=== PATIENT | female | born 1965 | race Caucasian/White ===

== ENCOUNTER → 2016-12-18 | Outpatient (CLI) | payer OTHER ==
[~2016-12-18] MED LIST: ASPIRIN325 MG PO; ATORVASTATIN CA40 MG PO; ERGOCALCIF50000 UNIT PO; FLEXERIL10 MG PO; HYDROCHLOROTHIA25 MG PO; LEVSIN-SL0.125 MG SL; LO-DOSE ASPIRIN81 M2 PO; NAPROSYN500 MG PO; NEXIUM40 MG PO; NOHOMEMEDS; NOLVADEX20 MG PO; SHARK FIN CART500 MG PO; TOPROL XL25 MG PO; ULTRAM50 MG PO; ZITHROMAX500 MG PO
[2016-12-18 10:37] LABS: MCH 29.7 PG (29.0-34.0); MCHC 33.8 G/DL (30.0-36.0); MCV 87.9 FL (83-99); MEAN PLAT.VOLUME 10.2 uM^3 (9.5-12.4); PLATELET COUNT 233 K/uL (156-360); RBC DIS.WIDTH-SD 38.7 % (39-53); RED BLOOD COUNT 5.12 M/uL (3.80-5.20)
[2016-12-18 10:52] LABS: PROTHROMBIN TIME 10.4 (9.2-11.2); PTT 28.9 (25-32)
== END | disposition home or self-care (01) ==
LOC: OPR 09:37 → EDSTATUS 10:00 → OPR 10:00
PROVIDERS: Thoracic Surgery (Cardiothoracic Vascular Surgery)
DX: B39.2 Pulmonary histoplasmosis capsulati, unspecified (principal); I10 Essential (primary) hypertension; E78.5 Hyperlipidemia, unspecified; Z85.3 Personal history of malignant neoplasm of breast; Z85.830 Personal history of malignant neoplasm of bone; Z82.49 Family history of ischemic heart disease and other diseases of the circulatory system; Z83.3 Family history of diabetes mellitus; Z82.3 Family history of stroke; Z82.5 Family history of asthma and other chronic lower respiratory diseases; Z88.0 Allergy status to penicillin
CPT/HCPCS: 71010; 77012; 85027; 85610; 85730; 88305; 88312; J3010

== ENCOUNTER 2017-08-04 14:21 | Emergency (ER) | payer OTHER ==
[~2017-08-04] VITALS: Ht 172.7 cm; Wt 74.7 kg
[~2017-08-04 14:21] MED LIST changes: -ATORVASTATIN CA40 MG PO; +ATORVASTATIN CA80 MG PO
[2017-08-04 15:22] LABS: HEMATOCRIT 40.1 % (36.0-46.0); MCH 31.3 PG (29.0-34.0); MCHC 35.4 G/DL (30.0-36.0); MCV 88.3 FL (83-99); MEAN PLAT.VOLUME 10.2 uM^3 (9.5-12.4); PLATELET COUNT 217 K/uL (156-360); RBC DIS.WIDTH-SD 38.9 % (39-53); RED BLOOD COUNT 4.54 M/uL (3.80-5.20); WHITE BLOOD COUNT 10.3 K/uL (4.1-10.2)
[2017-08-04 15:33] LABS: CHLORIDE 107 mEq/L (99-109); POTASSIUM 3.8 mEq/L (3.7-5.4); SODIUM 140 mEq/L (136-147)
[2017-08-04 15:35] LABS: GLUCOSE 95 mg/dL (70-99)
[2017-08-04 15:36] LABS: ANION GAP 10 MEQ/L (2-14)
[2017-08-04 15:39] LABS: GFR ESTIMATE (CALCULATED) > 59 mL/min/; UREA NITROGEN (BUN) 17 mg/dL (9-23)
[2017-08-04 15:46] LABS: TROP-I INTERPRETATION NEGATIVE; TROPONIN-I < 0.01 ng/mL (0.0-0.30)
[2017-08-04] MEDS ORDERED: TOPROL XL100 MG PO (17:39)
[2017-08-04] MEDS ORDERED: FLONASE16 G1 BOTH NARES (17:40)
[2017-08-04] MEDS ORDERED: AZELASTINE137 MCG/0. BOTH NARES (17:41)
[2017-08-04 18:45] VITALS: BP 154/98
== END 2017-08-04 18:46 | disposition home or self-care (01) ==
LOC: EME 14:21
PROVIDERS: Emergency Medicine
DX: M79.89 Other specified soft tissue disorders (principal); E21.3 Hyperparathyroidism, unspecified; Z72.0 Tobacco use; Z79.82 Long term (current) use of aspirin; Z88.0 Allergy status to penicillin; Z85.3 Personal history of malignant neoplasm of breast; Z89.619 Acquired absence of unspecified leg above knee; Z90.710 Acquired absence of both cervix and uterus
CPT/HCPCS: 70450; 71020; 80048; 83880; 84484; 85027; 93005; 93971; 99281; 99284

== ENCOUNTER 2017-08-16 19:24 | Emergency (ER) | payer OTHER ==
[~2017-08-16] VITALS: Ht 172.7 cm; Wt 73.5 kg
[~2017-08-16 19:24] MED LIST changes: +AZELASTINE137 MCG/0. BOTH NARES; +FLONASE16 G1 BOTH NARES; +TOPROL XL100 MG PO
[2017-08-16 23:18] VITALS: BP 160/100
== END 2017-08-16 23:17 | disposition home or self-care (01) ==
LOC: EME 19:24
DX: R42 Dizziness and giddiness (principal); E21.3 Hyperparathyroidism, unspecified; Z72.0 Tobacco use; Z79.82 Long term (current) use of aspirin; Z85.3 Personal history of malignant neoplasm of breast; Z90.710 Acquired absence of both cervix and uterus; Z89.619 Acquired absence of unspecified leg above knee; Z88.0 Allergy status to penicillin; Z88.1 Allergy status to other antibiotic agents
CPT/HCPCS: 93880; 99281; 99284